=== PATIENT | male | born 1985 | race Caucasian/White ===

== ENCOUNTER 2017-07-05 11:52 | Emergency (ER) | payer MEDICAID, MEDICARE, OTHER ==
[~2017-07-05] VITALS: Ht 182.9 cm; Wt 65.9 kg
[2017-07-05 11:58] VITALS: BP 127/93
== END 2017-07-05 15:08 | disposition home or self-care (01) ==
LOC: ED 14:07
DX: S13.4XXA Sprain of ligaments of cervical spine, initial encounter (principal); V49.40XA Driver injured in collision with unspecified motor vehicles in traffic accident, initial encounter; Y93.I9 Activity, other involving external motion; Y92.488 Other paved roadways as the place of occurrence of the external cause; Y99.8 Other external cause status
CPT/HCPCS: 72020; 72050; 99284